=== PATIENT | female | born 1990 | race Two or more races ===

== ENCOUNTER 2016-04-22 10:39 | Emergency (ER) | payer MEDICAID ==
[~2016-04-22] VITALS: Ht 157.5 cm; Wt 94.3 kg
[2016-04-22 10:56] VITALS: BP 148/94
== END 2016-04-22 11:25 | disposition home or self-care (01) ==
LOC: ER 10:39
DX: G56.01 Carpal tunnel syndrome, right upper limb (principal)
CPT/HCPCS: 29125

== ENCOUNTER 2018-05-25 18:09 | Emergency (ER) | payer MEDICAID | END 2018-05-25 18:46 | disposition left against medical advice (07) | LOC: ER 18:24 → MERGE 18:24 → ER 18:46 | DX: R51 Headache (principal); Z53.21 Procedure and treatment not carried out due to patient leaving prior to being seen by health care provider ==

== ENCOUNTER 2018-11-26 16:21 | Emergency (ER) | payer MEDICAID ==
[~2018-11-26] VITALS: Ht 157.5 cm; Wt 101.2 kg
[2018-11-26 17:09] LABS: Urine Bacteria FEW /hpf (None Seen); Urine Blood 1+ /uL (Negative); Urine Specific Gravity 1.024 (1.001-1.035); Urine WBC 4 /hpf (0 - 5)
[2018-11-26 17:12] LABS: Basophils # (auto) 0 uL; Basophils % (auto) 0.2 % (0.0-2.0); Eosinophils # (auto) 0 uL; Eosinophils % (auto) 0.3 % (0.0-7.0); Hematocrit 40.9 % (36.0-46.0); Hemoglobin 13.5 g/dL (12.2-16.2); Lymphocytes # (auto) 1.4 uL; Lymphocytes % (auto) 20.6 % (10.0-50.0); Mean Corpuscular Hemoglobin 29.2 pg (28.0-32.0); Mean Corpuscular Volume 88.5 fL (80.0-100.0); Monocytes # (auto) 0.4 uL; Monocytes % (auto) 5.6 % (0.0-12.0); Neutrophils # (auto) 4.9 uL; Neutrophils % (auto) 73.3 % (37.0-80.0); Platelet Count (auto) 163 10^3/uL (140-450); Red Blood Cells 4.62 10^6/uL (4.0-5.20); Red Cell Distribution Width 15.1 % (11.8-14.3); White Blood Cell 6.6 10^3/uL (4.4-10.8)
[2018-11-26 17:26] LABS: Albumin 3.4 g/dL (3.4-5.0); BUN/Creatinine Ratio 11.8; Calcium 8.4 mg/dL (8.5-10.1); Potassium 3.6 mmol/L (3.5-5.1)
[2018-11-26 17:29] LABS: Bilirubin, Total 0.4 mg/dL (0.2-1.0); Total Protein 7.3 g/dL (6.4-8.2)
[2018-11-26 20:20] VITALS: BP 139/93
== END 2018-11-26 20:36 | disposition home or self-care (01) ==
LOC: ER 16:21
DX: O20.0 Threatened abortion (principal); Z3A.08 8 weeks gestation of pregnancy
CPT/HCPCS: 36415; 76801; 80053; 81001; 84702; 85025

== ENCOUNTER 2019-04-29 15:20 | Observation (INO) | payer MEDICAID ==
[~2019-04-29] VITALS: Ht 157.5 cm; Wt 104.8 kg
[2019-04-29] MEDS ORDERED: PREN-96 PO (15:44)
[2019-04-29] MEDS ORDERED: BETAMETHASONE ACET (6MG/ML) 5ML VIAL IM SCH (16:00)
[2019-04-29 16:58] LABS: Basophils # (auto) 0 uL; Basophils % (auto) 0.1 % (0.0-2.0); Eosinophils # (auto) 0.1 uL; Eosinophils % (auto) 0.9 % (0.0-7.0); Lymphocytes # (auto) 1.2 uL; Lymphocytes % (auto) 15.3 % (10.0-50.0); Mean Corpuscular Hemoglobin 30.6 pg (28.0-32.0); Mean Corpuscular Hgb Conc. 34.1 g/dL (32.0-36.0); Mean Corpuscular Volume 89.8 fL (80.0-100.0); Monocytes # (auto) 0.4 uL; Monocytes % (auto) 5.2 % (0.0-12.0); Neutrophils % (auto) 78.5 % (37.0-80.0); Nucleated Red Blood Cells % 0.1 %; Platelet Count (auto) 152 10^3/uL (140-450); Red Blood Cells 4.23 10^6/uL (4.0-5.20); Red Cell Distribution Width 14.1 % (11.8-14.3); White Blood Cell 7.7 10^3/uL (4.4-10.8)
[2019-04-29 17:09] LABS: INR 0.94 (0.9-1.15); Partial Thromboplastin Time 27.4 sec (23.64-32.05)
[2019-04-29 17:20] LABS: Albumin 2.6 g/dL (3.4-5.0); Calcium 8.4 mg/dL (8.5-10.1); Potassium 3.6 mmol/L (3.5-5.1)
[2019-04-29 17:26] LABS: BUN/Creatinine Ratio 13.6; Bilirubin, Total 0.4 mg/dL (0.2-1.0); Total Protein 6.6 g/dL (6.4-8.2); Uric Acid 4.4 mg/dL (2.6-6.0)
[2019-04-29 17:31] LABS: Urine Bacteria FEW /hpf (None Seen); Urine Blood Negative /uL (Negative); Urine Mucus FEW (None Seen); Urine Specific Gravity 1.028 (1.001-1.035); Urine WBC 2 /hpf (0 - 5)
[2019-04-29 17:45] LABS: Amphetamine Screen, Urine NEGATIVE (NEGATIVE); Barbiturate Scree,Urine NEGATIVE (NEGATIVE); Benzodiazephine Screen, Urine NEGATIVE (NEGATIVE); Cannabinoid Screen, Urine NEGATIVE (NEGATIVE); Cocaine Screen, Urine NEGATIVE (NEGATIVE); Opiate Scree,Urine NEGATIVE (NEGATIVE); Phencyclidine Screen, Urine NEGATIVE (NEGATIVE)
[2019-04-29] MEDS ORDERED: HYDR250I6 IM (19:07)
== END 2019-04-29 19:33 | disposition home or self-care (01) | DRG 566 ==
LOC: LDRP 15:20
PROVIDERS: ADMIT Specialist; ATTEND Specialist
DX: O13.3 Gestational [pregnancy-induced] hypertension without significant proteinuria, third trimester (principal); Z3A.30 30 weeks gestation of pregnancy
CPT/HCPCS: 36415; 59025; 76815; 80053; 80307; 81001; 82962; 84550; 85025; 85610; 85730; 96372; G0378; J0702

== ENCOUNTER 2019-04-30 18:24 | Observation (INO) | payer MEDICAID ==
[~2019-04-30] VITALS: Ht 157.5 cm; Wt 104.8 kg
[~2019-04-30 18:24] MED LIST: HYDR250I6 IM; PREN-96 PO
[2019-04-30] MEDS ORDERED: BETAMETHASONE ACET (6MG/ML) 5ML VIAL IM ONE (19:30)
== END 2019-04-30 19:50 | disposition home or self-care (01) | DRG 861 ==
LOC: LDRP 18:24
PROVIDERS: ADMIT Obstetrics & Gynecology; ATTEND Obstetrics & Gynecology
DX: Z34.93 Encounter for supervision of normal pregnancy, unspecified, third trimester (principal); Z3A.31 31 weeks gestation of pregnancy; Z87.891 Personal history of nicotine dependence
CPT/HCPCS: 59025; 81002; 87086; G0378; 96372

== ENCOUNTER 2019-05-01 06:35 | Observation (INO) | payer MEDICAID ==
[2019-05-01 08:19] LABS: Urine Amorphous Crystal FEW /hpf (None Seen); Urine Bacteria FEW /hpf (None Seen); Urine Blood Negative /uL (Negative); Urine Mucus FEW (None Seen); Urine Specific Gravity 1.031 (1.001-1.035); Urine WBC 33 /hpf (0 - 5)
== END 2019-05-01 08:15 | disposition home or self-care (01) | DRG 563 ==
LOC: LDRP 06:35
PROVIDERS: ADMIT Obstetrics & Gynecology; ATTEND Obstetrics & Gynecology
DX: O60.03 Preterm labor without delivery, third trimester (principal); Z3A.31 31 weeks gestation of pregnancy
CPT/HCPCS: 59025; 81001; 81002; 82948; 82962; 84156; G0378

== ENCOUNTER 2019-05-08 07:22 | Observation (INO) | payer MEDICAID ==
[2019-05-08 08:51] LABS: Protein, Urine 18.5 mg/dL (0.0-11.9)
[2019-05-08 08:54] LABS: 24 Hr. Total Protein, Urine 323.7 mg/24 Hr (<149.1)
== END 2019-05-08 09:15 | disposition home or self-care (01) | DRG 566 ==
LOC: LDRP 07:22
PROVIDERS: ADMIT Obstetrics & Gynecology; ATTEND Obstetrics & Gynecology
DX: O13.3 Gestational [pregnancy-induced] hypertension without significant proteinuria, third trimester (principal); Z3A.32 32 weeks gestation of pregnancy; Z91.040 Latex allergy status
CPT/HCPCS: 59025; 81002; 82962; 84156; 87086; G0378

== ENCOUNTER 2019-05-14 13:13 | Observation (INO) | payer MEDICAID ==
[2019-05-14 15:20] LABS: Urine Bacteria FEW /hpf (None Seen); Urine Blood Negative /uL (Negative); Urine Mucus FEW (None Seen); Urine Specific Gravity 1.026 (1.001-1.035); Urine WBC 2 /hpf (0 - 5)
[2019-05-14 16:24] LABS: Basophils # (auto) 0 uL; Basophils % (auto) 0.3 % (0.0-2.0); Eosinophils # (auto) 0 uL; Eosinophils % (auto) 0.6 % (0.0-7.0); Hematocrit 38.8 % (36.0-46.0); Lymphocytes # (auto) 1.1 uL; Mean Corpuscular Hemoglobin 30.2 pg (28.0-32.0); Mean Corpuscular Hgb Conc. 33.6 g/dL (32.0-36.0); Mean Corpuscular Volume 90.1 fL (80.0-100.0); Monocytes # (auto) 0.4 uL; Monocytes % (auto) 5.2 % (0.0-12.0); Neutrophils # (auto) 6.3 uL; Neutrophils % (auto) 79.9 % (37.0-80.0); Nucleated Red Blood Cells % 0.1 %; Platelet Count (auto) 151 10^3/uL (140-450); Red Blood Cells 4.31 10^6/uL (4.0-5.20); Red Cell Distribution Width 13.7 % (11.8-14.3); White Blood Cell 7.9 10^3/uL (4.4-10.8)
[2019-05-14 16:43] LABS: Albumin 2.7 g/dL (3.4-5.0); Calcium 8.7 mg/dL (8.5-10.1); Potassium 3.7 mmol/L (3.5-5.1)
[2019-05-14 16:46] LABS: BUN/Creatinine Ratio 16.7; Bilirubin, Total 0.7 mg/dL (0.2-1.0)
== END 2019-05-14 16:15 | disposition home or self-care (01) | DRG 566 ==
LOC: LDRP 13:13
PROVIDERS: ADMIT Obstetrics & Gynecology; ATTEND Obstetrics & Gynecology
DX: O24.419 Gestational diabetes mellitus in pregnancy, unspecified control (principal); O13.3 Gestational [pregnancy-induced] hypertension without significant proteinuria, third trimester; Z3A.33 33 weeks gestation of pregnancy
CPT/HCPCS: 36415; 59025; 76775; 76818; 80053; 81001; 81002; 82948; 82962; 85025; G0378

== ENCOUNTER 2019-05-18 12:20 | Observation (INO) | payer MEDICAID ==
[~2019-05-18] VITALS: Ht 157.5 cm; Wt 81.6 kg
[2019-05-18 13:34] LABS: Urine Bacteria MANY /hpf (None Seen); Urine Blood Negative /uL (Negative); Urine Mucus FEW (None Seen); Urine Specific Gravity 1.022 (1.001-1.035); Urine WBC 4 /hpf (0 - 5)
[2019-05-18] MEDS ORDERED: TERBUTALINE SULFATE 1 MG/ML 1ML VIAL SC ONE (13:38)
[2019-05-18] MEDS: TERBUTALINE SULFATE 1 MG/ML 1ML VIAL SC SCH ×2 (13:49→15:18)
[2019-05-18 14:09] LABS: Basophils # (auto) 0 uL; Basophils % (auto) 0.2 % (0.0-2.0); Eosinophils # (auto) 0 uL; Eosinophils % (auto) 0.6 % (0.0-7.0); Hematocrit 38.8 % (36.0-46.0); Hemoglobin 13.1 g/dL (12.2-16.2); Lymphocytes # (auto) 1.2 uL; Lymphocytes % (auto) 18.7 % (10.0-50.0); Mean Corpuscular Hemoglobin 30.4 pg (28.0-32.0); Mean Corpuscular Hgb Conc. 33.7 g/dL (32.0-36.0); Monocytes # (auto) 0.4 uL; Monocytes % (auto) 5.7 % (0.0-12.0); Neutrophils # (auto) 4.7 uL; Neutrophils % (auto) 74.8 % (37.0-80.0); Platelet Count (auto) 135 10^3/uL (140-450); Red Blood Cells 4.32 10^6/uL (4.0-5.20); White Blood Cell 6.2 10^3/uL (4.4-10.8)
[2019-05-18 14:29] LABS: Albumin 2.6 g/dL (3.4-5.0); Calcium 8.5 mg/dL (8.5-10.1); Potassium 3.7 mmol/L (3.5-5.1)
[2019-05-18 14:38] LABS: BUN/Creatinine Ratio 12.9; Bilirubin, Total 0.5 mg/dL (0.2-1.0); Total Protein 6.9 g/dL (6.4-8.2); Uric Acid 4.6 mg/dL (2.6-6.0)
[2019-05-18 15:03] LABS: Alcohol, Urine < 3.0 mg/dL (0-5); Amphetamine Screen, Urine NEGATIVE (NEGATIVE); Barbiturate Scree,Urine NEGATIVE (NEGATIVE); Benzodiazephine Screen, Urine NEGATIVE (NEGATIVE); Cannabinoid Screen, Urine NEGATIVE (NEGATIVE); Cocaine Screen, Urine NEGATIVE (NEGATIVE); Opiate Scree,Urine NEGATIVE (NEGATIVE); Phencyclidine Screen, Urine NEGATIVE (NEGATIVE)
[2019-05-18] MEDS ORDERED: SULF400T11 PO (17:49)
[2019-05-18] MEDS ORDERED: METF-370 PO (17:49)
== END 2019-05-18 17:45 | disposition home or self-care (01) | DRG 566 ==
LOC: LDRP 12:20
PROVIDERS: ADMIT Obstetrics & Gynecology; ATTEND Obstetrics & Gynecology
DX: O24.419 Gestational diabetes mellitus in pregnancy, unspecified control (principal); O60.03 Preterm labor without delivery, third trimester; O16.3 Unspecified maternal hypertension, third trimester; O23.43 Unspecified infection of urinary tract in pregnancy, third trimester; Z91.19 Patient's noncompliance with other medical treatment and regimen; Z91.040 Latex allergy status; Z3A.33 33 weeks gestation of pregnancy
CPT/HCPCS: 36415; 59025; 76818; 80053; 80307; 81001; 81002; 83036; 84550; 85025; 86592; 87086; 96372; G0378; J3105; 87088; 87186

== ENCOUNTER 2019-05-21 10:08 | Observation (INO) | payer MEDICAID ==
[~2019-05-21 10:08] MED LIST changes: +METF-370 PO; +SULF400T11 PO
== END 2019-05-21 14:40 | disposition home or self-care (01) | DRG 563 ==
LOC: LDRP 10:08
PROVIDERS: ADMIT Specialist; ATTEND Specialist
DX: O60.03 Preterm labor without delivery, third trimester (principal); O24.419 Gestational diabetes mellitus in pregnancy, unspecified control; Z3A.34 34 weeks gestation of pregnancy
CPT/HCPCS: 59025; 76818; 81002; 82948; 82962; G0378

== ENCOUNTER 2019-05-25 08:11 | Observation (INO) | payer MEDICAID | END 2019-05-25 09:45 | disposition home or self-care (01) | DRG 566 | LOC: LDRP 08:11 | PROVIDERS: ADMIT Specialist; ATTEND Specialist | DX: O24.419 Gestational diabetes mellitus in pregnancy, unspecified control (principal); O60.03 Preterm labor without delivery, third trimester; O13.3 Gestational [pregnancy-induced] hypertension without significant proteinuria, third trimester; Z3A.34 34 weeks gestation of pregnancy; Z91.040 Latex allergy status | CPT/HCPCS: 59025; 76818; 81002; 82948; 82962; 87086; G0378 ==

== ENCOUNTER 2019-05-28 10:07 | Observation (INO) | payer MEDICAID | END 2019-05-28 12:25 | disposition home or self-care (01) | DRG 861 | LOC: LDRP 10:07 | PROVIDERS: ADMIT Specialist; ATTEND Specialist | DX: Z34.90 Encounter for supervision of normal pregnancy, unspecified, unspecified trimester (principal); Z3A.35 35 weeks gestation of pregnancy | CPT/HCPCS: 59025; 76818; 81002; 82948; 82962; G0378 ==

== ENCOUNTER 2019-05-31 16:54 | Observation (INO) | payer MEDICAID ==
[2019-05-31] MEDS: TERBUTALINE SULFATE 1 MG/ML 1ML VIAL SC SCH ×2 (18:00→18:52)
== END 2019-05-31 19:35 | disposition home or self-care (01) | DRG 566 ==
LOC: LDRP 16:54
PROVIDERS: ADMIT Obstetrics & Gynecology; ATTEND Obstetrics & Gynecology
DX: O24.415 Gestational diabetes mellitus in pregnancy, controlled by oral hypoglycemic drugs (principal); O60.03 Preterm labor without delivery, third trimester; Z79.84 Long term (current) use of oral hypoglycemic drugs; Z91.040 Latex allergy status; Z3A.35 35 weeks gestation of pregnancy
CPT/HCPCS: 59025; 76818; 81002; 82962; 96372; G0378; J3105

== ENCOUNTER 2019-06-04 14:23 | Observation (INO) | payer MEDICAID ==
[2019-06-04 16:07] LABS: Basophils # (auto) 0 10 ^3/uL (0-0.2); Basophils % (auto) 0.2 % (0.0-2.0); Eosinophils # (auto) 0 10 ^3/uL (0-0.8); Eosinophils % (auto) 0.5 % (0.0-7.0); Hematocrit 37.7 % (36.0-46.0); Hemoglobin 12.7 g/dL (12.2-16.2); Lymphocytes # (auto) 0.9 10 ^3/uL (0.4-5.4); Lymphocytes % (auto) 15.3 % (10.0-50.0); Mean Corpuscular Hemoglobin 29.6 pg (28.0-32.0); Mean Corpuscular Hgb Conc. 33.6 g/dL (32.0-36.0); Mean Corpuscular Volume 88.2 fL (80.0-100.0); Monocytes # (auto) 0.4 10 ^3/uL (0-1.3); Monocytes % (auto) 7.1 % (0.0-12.0); Neutrophils # (auto) 4.5 10 ^3/uL (1.6-8.6); Neutrophils % (auto) 76.9 % (37.0-80.0); Nucleated Red Blood Cells % 0.1 %; Platelet Count (auto) 151 10^3/uL (140-450); Red Blood Cells 4.28 10^6/uL (4.0-5.20); Red Cell Distribution Width 14.1 % (11.8-14.3); White Blood Cell 5.9 10^3/uL (4.4-10.8)
[2019-06-05 07:06] LABS: RPR Non Reactive (Non Reactive)
== END 2019-06-04 16:15 | disposition home or self-care (01) | DRG 566 ==
LOC: LDRP 14:23
PROVIDERS: ADMIT Obstetrics & Gynecology; ATTEND Obstetrics & Gynecology
DX: O24.415 Gestational diabetes mellitus in pregnancy, controlled by oral hypoglycemic drugs (principal); O60.03 Preterm labor without delivery, third trimester; O13.3 Gestational [pregnancy-induced] hypertension without significant proteinuria, third trimester; Z3A.36 36 weeks gestation of pregnancy
CPT/HCPCS: 36415; 59025; 76818; 81002; 82948; 82962; 83036; 85025; 86592; 87081; G0378

== ENCOUNTER 2019-06-08 08:17 | Observation (INO) | payer MEDICAID ==
[2019-06-08 10:38] LABS: Albumin 2.4 g/dL (3.4-5.0); Calcium 8.4 mg/dL (8.5-10.1); Potassium 3.9 mmol/L (3.5-5.1)
[2019-06-08 10:42] LABS: BUN/Creatinine Ratio 12.5; Bilirubin, Total 0.5 mg/dL (0.2-1.0); Total Protein 6.3 g/dL (6.4-8.2)
== END 2019-06-08 10:10 | disposition home or self-care (01) | DRG 566 ==
LOC: LDRP 08:17
PROVIDERS: ADMIT Specialist; ATTEND Specialist
DX: O24.419 Gestational diabetes mellitus in pregnancy, unspecified control (principal); Z3A.36 36 weeks gestation of pregnancy
CPT/HCPCS: 36415; 59025; 76818; 80053; 81002; 82948; 82962; G0378

== ENCOUNTER 2019-06-11 11:02 | Observation (INO) | payer MEDICAID ==
[~2019-06-11] VITALS: Ht 157.5 cm; Wt 106.1 kg
== END 2019-06-11 12:48 | disposition home or self-care (01) | DRG 566 ==
LOC: LDRP 11:02
PROVIDERS: ADMIT Specialist; ATTEND Specialist
DX: O24.415 Gestational diabetes mellitus in pregnancy, controlled by oral hypoglycemic drugs (principal); O13.3 Gestational [pregnancy-induced] hypertension without significant proteinuria, third trimester; Z3A.37 37 weeks gestation of pregnancy
CPT/HCPCS: 59025; 76818; 81002; 82948; 82962; G0378

== ENCOUNTER 2019-06-15 08:22 | Observation (INO) | payer MEDICAID ==
[~2019-06-15 08:22] MED LIST changes: -HYDR250I6 IM
== END 2019-06-15 09:32 | disposition home or self-care (01) | DRG 566 ==
LOC: LDRP 08:22
PROVIDERS: ADMIT Obstetrics & Gynecology; ATTEND Obstetrics & Gynecology
DX: O24.419 Gestational diabetes mellitus in pregnancy, unspecified control (principal); Z3A.37 37 weeks gestation of pregnancy
CPT/HCPCS: 59025; 76818; 81002; 82948; 82962; G0378

== ENCOUNTER 2019-06-21 08:17 | Observation (INO) | payer MEDICAID | END 2019-06-21 09:45 | disposition home or self-care (01) | DRG 566 | LOC: LDRP 08:17 | PROVIDERS: ADMIT Specialist; ATTEND Specialist | DX: O24.419 Gestational diabetes mellitus in pregnancy, unspecified control (principal); Z3A.38 38 weeks gestation of pregnancy | CPT/HCPCS: 59025; 76818; 81002; 82948; 82962; G0378 ==

== ENCOUNTER 2019-06-24 13:05 | Observation (INO) | payer MEDICAID ==
[~2019-06-24] VITALS: Ht 157.5 cm; Wt 105.7 kg
== END 2019-06-24 14:21 | disposition home or self-care (01) | DRG 566 ==
LOC: LDRP 13:05
PROVIDERS: ADMIT Obstetrics & Gynecology; ATTEND Obstetrics & Gynecology
DX: O46.93 Antepartum hemorrhage, unspecified, third trimester (principal); Z3A.38 38 weeks gestation of pregnancy
CPT/HCPCS: 59025; 82948; 82962; G0378

== ENCOUNTER 2019-06-25 11:31 | Observation (INO) | payer MEDICAID | END 2019-06-25 12:40 | disposition home or self-care (01) | DRG 566 | LOC: LDRP 11:31 | PROVIDERS: ADMIT Specialist; ATTEND Specialist | DX: O24.419 Gestational diabetes mellitus in pregnancy, unspecified control (principal); O62.9 Abnormality of forces of labor, unspecified; Z3A.39 39 weeks gestation of pregnancy | CPT/HCPCS: 59025; 76818; 81002; 82948; 82962; G0378 ==

== ENCOUNTER 2019-06-27 21:06 | Inpatient (IN) | payer MEDICAID ==
[~2019-06-27] VITALS: Ht 157.5 cm; Wt 105.2 kg
[2019-06-27] MEDS ORDERED: LACT. RINGERS/OXYTOCIN 20UNITS 1,000 ML IV SCH (21:19)
[2019-06-27] MEDS ORDERED: LACTATED RINGER'S 1,000 ML IV SCH (21:19)
[2019-06-27] MEDS ORDERED: WITCH HAZEL-GLYCERIN PAD TOP PRN (21:30)
[2019-06-27] MEDS ORDERED: DERMOPLAST 60ML BOTTLE TOP PRN (21:30)
[2019-06-27] MEDS ORDERED: LIDOCAINE 2%HCL (LOCAL ANESTH.) INJ 20ML MDV ID PRN (21:30)
[2019-06-27] MEDS ORDERED: PHISODERM TOP SOLN 240ML BTL TOP PRN (21:30)
[2019-06-27] MEDS ORDERED: ACCU-CHEK COMFORT CURVE STRIP VI PRN (21:30)
[2019-06-27] MEDS ORDERED: PENICILLIN G POT 5MIL/D5 50ML 50 ML IV ONE (21:30)
[2019-06-27 22:31] LABS: Basophils # (auto) 0 10 ^3/uL (0-0.2); Basophils % (auto) 0.2 % (0.0-2.0); Eosinophils # (auto) 0 10 ^3/uL (0-0.8); Eosinophils % (auto) 0.1 % (0.0-7.0); Hematocrit 38.8 % (36.0-46.0); Hemoglobin 12.9 g/dL (12.2-16.2); Lymphocytes # (auto) 1.3 10 ^3/uL (0.4-5.4); Lymphocytes % (auto) 17.8 % (10.0-50.0); Mean Corpuscular Hemoglobin 28.9 pg (28.0-32.0); Mean Corpuscular Hgb Conc. 33.3 g/dL (32.0-36.0); Monocytes # (auto) 0.4 10 ^3/uL (0-1.3); Monocytes % (auto) 5.1 % (0.0-12.0); Neutrophils # (auto) 5.6 10 ^3/uL (1.6-8.6); Neutrophils % (auto) 76.8 % (37.0-80.0); Nucleated Red Blood Cells % 0.1 %; Platelet Count (auto) 186 10^3/uL (140-450); Red Blood Cells 4.46 10^6/uL (4.0-5.20); Red Cell Distribution Width 14.3 % (11.8-14.3); White Blood Cell 7.3 10^3/uL (4.4-10.8)
[2019-06-27] MEDS ORDERED: miSOPROStol 50 MCG per PRE-CUT 1/2 TAB PO PRN (22:45)
[2019-06-27 22:53] LABS: Urine Bacteria FEW /hpf (None Seen); Urine Blood Negative /uL (Negative); Urine Mucus FEW (None Seen); Urine WBC 11 /hpf (0 - 5)
[2019-06-27 22:58] LABS: Albumin 2.6 g/dL (3.4-5.0); Calcium 8.5 mg/dL (8.5-10.1); Potassium 3.6 mmol/L (3.5-5.1)
[2019-06-27 23:02] LABS: BUN/Creatinine Ratio 15.2; Bilirubin, Total 0.7 mg/dL (0.2-1.0)
[2019-06-27 23:03] LABS: Alcohol, Urine < 3.0 mg/dL (0-5); Amphetamine Screen, Urine NEGATIVE (NEGATIVE); Barbiturate Scree,Urine NEGATIVE (NEGATIVE); Benzodiazephine Screen, Urine NEGATIVE (NEGATIVE); Cannabinoid Screen, Urine NEGATIVE (NEGATIVE); Cocaine Screen, Urine NEGATIVE (NEGATIVE); Opiate Scree,Urine NEGATIVE (NEGATIVE); Phencyclidine Screen, Urine NEGATIVE (NEGATIVE)
[2019-06-27 23:10] LABS: INR 0.94 (0.9-1.15); Partial Thromboplastin Time 27.2 sec (23.64-32.05)
[2019-06-28] MEDS ORDERED: PENICILLIN G POTASSIUM 2,500,000 UNITS in D5W 5% 50 ML IV SCH (01:30)
[2019-06-28] MEDS ORDERED: PENICILLIN G POT 5MILLION UNIT VIAL ONE (03:17)
[2019-06-28] MEDS ORDERED: SODIUM CHLORIDE LOCK 10 ML ONE (03:22)
[2019-06-28] MEDS ORDERED: TERBUTALINE SULFATE 1 MG/ML 1ML VIAL SC ONE (04:15)
[2019-06-28] MEDS ORDERED: ACETAMINOPHEN 325 MG TAB PO PRN (07:00)
[2019-06-28] MEDS: IBUPROFEN 600 MG TAB PO PRN ×2 (07:33→22:26)
[2019-06-28 10:50] VITALS: BP 143/59
[2019-06-28 15:00] VITALS: BP 133/89
[2019-06-28 19:00] VITALS: BP 138/94
[2019-06-28 23:00] VITALS: BP 144/94
[2019-06-29 03:00] VITALS: BP 144/91
[2019-06-29 05:06] LABS: RPR Non Reactive (Non Reactive)
[2019-06-29 06:30] VITALS: BP 120/70
[2019-06-29] MEDS: IBUPROFEN 600 MG TAB PO PRN ×2 (10:42→19:33)
[2019-06-29 10:50] VITALS: BP 122/64
[2019-06-29 15:00] VITALS: BP 131/93
[2019-06-29 19:20] VITALS: BP 137/80
[2019-06-29 23:00] VITALS: BP 141/88
[2019-06-30 02:51] VITALS: BP 125/71
[2019-06-30 06:45] VITALS: BP 133/85
[2019-06-30 11:01] VITALS: BP 145/83
[2019-06-30] MEDS: IBUPROFEN 600 MG TAB PO PRN (15:19)
[2019-06-30 15:24] VITALS: BP 152/97
[2019-06-30 15:54] VITALS: BP 146/90
== END 2019-06-30 17:55 | disposition home or self-care (01) | DRG 560 ==
LOC: LDRP 21:06
PROVIDERS: ADMIT Specialist; ATTEND Specialist
PROC: 10E0XZZ Delivery of Products of Conception, External Approach (ICD-10-PCS; principal; 2019-06-28)
DX: O24.429 Gestational diabetes mellitus in childbirth, unspecified control (principal); O75.3 Other infection during labor; O99.824 Streptococcus B carrier state complicating childbirth; Z37.0 Single live birth; Z3A.39 39 weeks gestation of pregnancy
CPT/HCPCS: 36415; 59025; 59409; 80053; 80307; 81001; 81002; 82962; 83036; 84112; 84550; 85025; 85610; 85730; 86592; 86850; 86900; 86901; 96361; 96366; G0378; J2540; J2590; J7060

== ENCOUNTER 2023-07-08 07:48 | Emergency (ER) | payer MEDICAID ==
[~2023-07-08] VITALS: Ht 157.5 cm; Wt 102.6 kg
[~2023-07-08 07:48] MED LIST changes: -METF-370 PO; -SULF400T11 PO
[2023-07-08 08:17] VITALS: BP 150/80; PULSE 84; RESP 16; TEMP 98.6; O2SAT 98
[2023-07-08] MEDS ORDERED: NAP500T PO (09:49)
== END 2023-07-08 10:13 | disposition home or self-care (01) ==
LOC: ER 07:48
DX: M54.12 Radiculopathy, cervical region (principal); M25.512 Pain in left shoulder
CPT/HCPCS: 29105